=== PATIENT | female | born 1965 | race Hispanic/Latino ===

== ENCOUNTER 2016-07-17 18:04 | Emergency (ER) | payer OTHER ==
[~2016-07-17] VITALS: Ht 144.8 cm; Wt 91.8 kg
[~2016-07-17 18:04] MED LIST: ASPI-973 PO; ATOR20TA PO; HYDR-4003 PO; IBUP800T28 PO; METF500T4 PO; ROB500 PO
[2016-07-17 18:12] VITALS: BP 128/90; PULSE 81; RESP 16; O2SAT 98
[2016-07-17] MEDS ORDERED: OXYC1TAB24 PO (18:18)
[2016-07-17] MEDS ORDERED: OMEP20CA11 PO (18:18)
[2016-07-17] MEDS ORDERED: FLUO20CA25 PO (18:18)
[2016-07-17] MEDS ORDERED: CYCL5TAB PO (18:18)
[2016-07-17 18:41] LABS: BASOPHILS % (AUTO) 0 % (0-3); EOSINOPHILS % (AUTO) 0.3 % (0-5); MONOCYTES % (AUTO) 9.9 % (4-12); Mean Corpuscular Hemoglobin 29.2 pg (27.0-35.0); Mean Corpuscular Volume 87.5 fL (81-100); NEUTROPHILS % (AUTO) 54.7 % (40-74); Platelet Count 194 bil/L (150-400)
--- NOTE | 2016-07-17 18:57 | DRSVH ---
PROCEDURE: X-RAY CHEST, TWO VIEWS ([id number]) INDICATIONS: chest pain , shortness of breath TECHNIQUE: 2 views of the chest were acquired. COMPARISON: None. FINDINGS: Surgical changes and devices: Multiple surgical clips are projected over the epigastrium. Lungs and pleura: No pleural effusions or pneumothorax. Lungs are clear. Mediastinum: Mediastinal contours are normal. Heart size is normal. Bones and chest wall: No suspicious bony abnormalities. Soft tissues appear unremarkable. IMPRESSION: No acute cardiopulmonary findings. Dictated by: Virgen Rome M.D. on 07/17/2016 at 18:54 Approved by: Virgen Rome M.D. on 07/17/2016 at 18:55
--- NOTE | 2016-07-17 20:50 | ED.REPORT ---
HPI-Dyspnea / Wheezing Date of Service Jul 17, 2016 ED Provider: Uriel Andujar MD Pt is a 51 y/o female w/ a hx of NIDDM presenting to the ED c/o cough onset 2 days ago. She c/o associated chest tightness, back pain, rib pain, which are all exacerbated by coughing and deep breaths. Pt c/o associated rhinorrhea, sore throat. She denies phlegm, fever, nausea, vomiting. Nursing Notes Stated Complaint: COUGH,FEVER,CHEST AND BACK PAIN Chief Complaint: FLU/Cold Symptoms Nursing Notes Reviewed: Yes Allergies: Coded Allergies: TAPE (Verified Allergy, Unknown, SKIN PEELS, 07/17/16) hydromorphone (Verified Adverse Reaction, Severe, Nausea,Vomiting, 07/17/16 ) severe nausea and vomiting. Scheduled Aspirin (Aspirin) 81 Mg Tablet.dr 81 MG PO DAILY Atorvastatin (Lipitor) 20 Mg Tablet 20 MG PO HS Fluoxetine (Fluoxetine) 20 Mg Capsule 20 MG PO DAILY Metformin (Metformin) 500 Mg Tablet 500 MG PO BIDWM Omeprazole (Omeprazole) 20 Mg Capsule.dr 20 MG PO DAILY Promethazine DM Syrup (Promethazine DM Syrup) 118 Ml Syrup 5 ML PO HS oxyCODONE-Acetaminophen 5-325 mg (oxyCODONE-Acetaminophen 5-325 mg) 1 Each Tablet 1 TAB PO BID Scheduled PRN Cyclobenzaprine (Cyclobenzaprine) 5 Mg Tablet 5 MG PO BID PRN PRN For Spasm Fluticasone Propionate (Flonase Allergy Relief) 50 Mcg/Actuation [place].susp 9.9 ML NS BID PRN PRN For Congestion Ibuprofen (Ibuprofen) 800 Mg Tablet 800 MG PO DAILY PRN PRN For Pain General Time Seen by MD: 20:50 Chief Complaint Cough Hx Obtained From: Patient Arrived By: Walk-in Sudden in Onset?: No Onset Occurred: 2 days ago Symptom Duration: Since onset Location: : Back: Chest left: Chest right Quality: Pleuritic Severity: Current: Mild Severity: Maximum: Mild Risk Factors PERC Rule PERC rule satisfied Past Medical History Past Medical History PCP: Dr. Uriel Mathis NIDDM Osteoarthritis in lumbar Diverticilosis Diverticulitis Born with only right kidney Past Surgical History Colectomy Hiatal hernia repair Reports: Appendectomy, , Cholecystectomy, Hysterectomy Family History Reviewed, not relevant Smoking History Never Smoker Social History Other Social History: Good social support, Local resident Ambulatory Status Independent Review of Systems Constitutional: Denies: Chills, Fever Ears / Nose / Throat: Reports: Nasal congestion, Sore throat, Denies: Throat swelling Respiratory: Reports: Non-productive cough, Pleuritic pain, Denies: Prod cough, bloody, Prod cough, brown, Prod cough, clear, Prod cough , green, Prod cough, white, Prod cough, yellow, Shortness of breath Cardiovascular: Reports: Chest pain (noncard), Denies: Edema Musculoskeletal: Reports: Back pain, Neck pain, Thoracic pain Allergy / Immune: Reports: Rhinorrhea, Denies: Itching Complete sys rev & neg: except as marked. GI: Denies: Abdominal pain, Nausea, Vomiting Physical Exam Initial Vital Signs Vital Signs (First) Date Time Temp Pulse Resp B/P Pulse Ox O2 Delivery O2 Flow Rate FiO2 07/17/16 18:12 36.2 81 16 128/90 98 Room Air Initial VS: Reviewed, Vital signs normal Head / Eyes: Atraumatic, Normocephalic, PERRL ENT: Mucous membranes moist, Conjunctiva normal, No scleral icterus Abdomen / GI: Soft, Non-tender, No guarding, No rebound, No distention Extremities: Vascular intact, Neuro intact, No swelling, No tenderness Skin: Warm, Dry, No cyanosis Neurologic: Alert, Oriented, Nonfocal Psychiatric: Mood/affect normal, Behavior normal, Normal thought content General/Constitutional: Awake, Alert, No acute distress, Well appearing, Cooperative, Not toxic appearing Neck: Atraumatic, Supple, No meningismus, Full range of motion Respiratory / Chest: Atraumatic, Breath sounds NL, Breath sounds = bilat, No respiratory distress, No rales, No rhonchi, No wheezing, No retractions, No stridor, No chest tenderness, No chest wall deformity, No crepitus Cardiovascular: Heart rate NL, Regular rhythm, Heart sounds NL, No gallop, No murmurs, No rubs, Cap refill not delayed, Peripheral circulation NL Interpretation & Diagnostics Lab Results Interpretation Result Diagram: 07/17/16182407/17/161824 Test 07/17/16 18:25 White Blood Count 6.4th/mm3 (3.8-10.1) Red Blood Count 5.10mil/mm3 (3.90-5.20) Hemoglobin 14.9g/dL (12.0-15.6) Hematocrit 44.6% (35.0-46.0) Mean Corpuscular Volume 87.5fL (81-100) Mean Corpuscular Hemoglobin 29.2pg (27.0-35.0) Mean Corpuscular Hemoglobin Concent 33.4% (32.0-37.0) Red Cell Distribution Width 14.2% (12.3-15.4) Platelet Count 194bil/L (150-400) Neutrophils (%) (Auto) 54.7% (40-74) Lymphocytes (%) (Auto) 34.9% (14-46) Monocytes (%) (Auto) 9.9% (4-12) Eosinophils (%) (Auto) 0.3% (0-5) Basophils (%) (Auto) 0% (0-3) Sodium Level 136mEq/L (134-144) Potassium Level 4.7mEq/L (3.5-5.2) Chloride Level 98mEq/L (97-108) Carbon Dioxide Level 24mmol/L (18-29) Blood Urea Nitrogen 14mg/dL (6-24) Creatinine 0.94mg/dL (0.57-1.00) Estimat Glomerular Filtration Rate 90mL/min (>59) Glucose Level 142mg/dL (60-99) Calcium Level 9.5mg/dL (8.5-10.1) Total Bilirubin 0.3mg/dL (0.0-1.2) Aspartate Amino Transf (AST/SGOT) 24U/L (0-50) Alanine Aminotransferase (ALT/SGPT) 31U/L (0-32) Alkaline Phosphatase 121U/L (25-150) Total Protein 7.6g/dL (6.4-8.4) Albumin 4.4g/dL (3.4-5.0) Hold Estrada Top Tube Received (Received) Lab Results Interpretation: Flu neg X-Ray Chest Interpretation Chest Xray Interpretation: IMPRESSION: No acute cardiopulmonary findings. Dictated by: Virgen Rome M.D. on 07/17/2016 at 18:54 Approved by: Virgen Rome M.D. on 07/17/2016 at 18:55 View: Portable, 1 view Interpretation / Wet Read by: Interpret - Radiologist Re-Eval/Medical Decision Med Decision/Clinical Course 31-year-old female presenting with 2 days cough and congestion. Chest x-ray is clear. Vital signs stable. Likely viral URI. Supportive care. Return precautions. Re-Evaluation/Progress : Time of Eval: 21:24 Re-Evaluation/Progress Note: Pt rechecked. Informed pt of plan for treatment. Pt understands and agrees with plan for treatment. F/U instructions and RTER warnings given. All questions addressed. Counseled Regarding: Diagnosis, Lab results, Need for follow-up, When/why to return to ED Discharge & Departure Impression: Primary Impression: Viral URI Disposition: Home Discharge Condition All VS Reviewed: Yes Condition: Stable Patient Instructions: Upper Respiratory Infection (ED) Additional Instructions: Your symptoms today are consistent with a viral upper respiratory infection. This should improve within the next few days. Your labs and chest x-ray were normal. The flu was negative. Take the prescribed cough syrup as directed. Return to the emergency department if you experience severe shortness of breath , high fever, profound weakness, persistent vomiting, severe pain, or other concerning symptoms. Follow-up with your doctor next week. Referrals: Uriel Mathis MD (PCP) Scribe Attestation Portions of this note were transcribed by Kvng Carter. I, Dr. Andujar personally performed the history, physical exam and medical decision-making; I reviewed and confirmed the accuracy of the information in the transcribed note. Signed by Gary Wagner, 07/17/16 - 0 copies to: Uriel Mathis MD, Ben M MD Jul 17, 2016 20:50 KVNG CARTER Jul 17, 2016 20:51
[2016-07-17] MEDS ORDERED: FLUT9.9S NS (21:26)
[2016-07-17] MEDS ORDERED: D-ME118S8 PO (21:26)
[2016-07-17 21:39] VITALS: BP 131/80; PULSE 89; RESP 16; O2SAT 96
[2016-10-20] MEDS ORDERED: CYCL15CA18 PO (13:42)
== END 2016-07-17 21:44 | disposition home or self-care (01) ==
LOC: SED 18:04
DX: J06.9 Acute upper respiratory infection, unspecified (principal); E11.9 Type 2 diabetes mellitus without complications; Z79.82 Long term (current) use of aspirin; Z79.84 Long term (current) use of oral hypoglycemic drugs; Z88.5 Allergy status to narcotic agent

== ENCOUNTER 2016-10-22 11:04 | Day surgery (SDC) | payer OTHER ==
[~2016-10-22] VITALS: Ht 147.3 cm; Wt 94.3 kg
[~2016-10-22 11:04] MED LIST changes: +CYCL15CA18 PO; +FLUO20CA25 PO; -HYDR-4003 PO; -IBUP800T28 PO; +Lactated Ringer's 1,000 ML IV ONE; +OMEP20CA11 PO; -ROB500 PO
[2016-10-22] MEDS ORDERED: Propofol 10,000 mCg/mL 20 mL Inj ONE (11:05)
[2016-10-22 11:49] VITALS: BP 153/62; PULSE 89; RESP 17; O2SAT 63
[2016-10-22] MEDS ORDERED: Lactated Ringer's 1,000 ML IV SCH (12:15)
[2016-10-22] MEDS ORDERED: MetoCLOpramide 5 mg/mL 2 mL Inj IVPUSH PRN (12:15)
[2016-10-22] MEDS ORDERED: Ondansetron 2 mg/mL 2 mL Inj IVPUSH PRN (12:15)
--- NOTE | 2016-10-22 12:15 | PCM.HPANE ---
Patient Data Date of Service: Oct 22, 2016 Surgeon Admitting Provider: Attending Provider:Tony Ramesh MD Primary Care Physician:Uriel Mathis MD Other Provider:Shelby Phan Anesthesia Reason for Visit Colon Ca Screen Ht/WT & BMI Height (Feet): 4 Height (Inches): 10 Weight (Kilograms): 94.35 Body Mass Index 43.00 Allergies Coded Allergies: TAPE (Verified Allergy, Unknown, SKIN PEELS, 07/17/16) hydromorphone (Verified Adverse Reaction, Severe, Nausea,Vomiting, palpations, 10/22/16) severe nausea and vomiting. Past Anesthesia History Anesthesia History: Positive for:: Anesthesia Reactions (nausea), Denies:: Fam Malignant Hypertherm, Malignant Hyperthermia Diabetes History Hx Diabetes?: Yes (on metformin) Current Bedside Blood Glucose: 112 MRSA MRSA: No Medications Hypertension Medication: No Home Meds Incl Beta Ryan: No Active Scripts Atorvastatin (Lipitor)20 Mg [id number] Mg PO HS #30 TABLET Ref 3 Prov:Jose Tomlinson MD 02/10/14 Aspirin 81 Mg Tablet.dr81 Mg PO DAILY #1 BOTTLE Ref 3 Prov:Jose Tomlinson MD 02/10/14 Metformin 500 Mg [id number] Mg PO BIDWM #30 TABLET Ref 3 Prov:Jose Tomlinson MD 02/10/14 Reported Medications Cyclobenzaprine ER (Amrix)15 Mg Capsule1 Capsule PO DAILY PRN unknown 10/20/16 Fluoxetine 20 Mg [id number] Mg PO DAILY 07/17/16 Omeprazole 20 Mg Capsule.dr20 Mg PO DAILY 07/17/16 Discontinued Reported Medications Cyclobenzaprine 5 Mg Tablet5 Mg PO BID PRN For Spasm #30 07/17/16 oxyCODONE-Acetaminophen 5-325 mg 1 Each Tablet1 Tab PO BID #56 07/17/16 Ibuprofen 800 Mg Acndev152 Mg PO DAILY PRN For Pain #90 08/31/15 Discontinued Scripts Promethazine DM Syrup 118 Ml Syrup5 Ml PO HS #10 ML Prov:Uriel Andujar MD 07/17/16 Fluticasone Propionate (Flonase Allergy Relief)50 Mcg/Actuation [place].susp9.9 Ml NS BID PRN For Congestion #1 BOTTLE Prov:Uriel Andujar MD 07/17/16 History History of ENT Problems?: No HEENT History: Denies:: Hearing Problem Denture Type: None Teeth Condition: Within Normal Limits Hx of Heart Problems?: Yes Cardiovascular History: Denies:: Cardiac Surgery Congestive Heart Failure Edema Heart Murmur Hypertension Irregular Heartbeat (Palpitations sometimes. ) Pacemaker Thrombophlebitis Hx of Respiratory Problem?: No Respiratory History: Positive for:: Dyspnea (when I have pain. ) Denies:: Asthma COPD Chest Surgery Hemoptysis Pneumonia Tuberculosis Hx Neurologic Problems?: No Neurological History: Denies:: Alzheimer's Disease CVA Dementia Dizziness Headaches Parkinson's Disease Seizures Hx of GI Problems?: Yes Hx of Problems?: No Genitourinary History: Denies:: HX of Hemodialysis Kidney Stones Urinary Tract Infection ("I was born with one kidney.") HX of Peritoneal Dialysis: No Female Hx: Denies:: Currently Endometriosis Pelvic Inflammatory Problems with Breasts? Hx Musculoskeletal Problems?: Yes Musculoskeletal History: Denies:: Back Injury Joint Replacement Musculoskeletal Trauma Hx of Psycho/Social Problems?: No Psycho Social History: Positive for:: Anxiety Hx Depression Denies:: Bipolar Disorder Suicide Attempt Hx Surgeries?: Yes (c section, partial colectomy, esophageal/stomach valve surgery) Hx Any Other Health Problems?: Yes Other History: Denies:: Cancer Endocrine Disease Thyroid Disease History Blood Transfusions: Denies:: Blood Transfusions Hx Diabetes: Yes (on metformin)Bedside Blood Glucose: 112 Hx Alcohol Use: NoHx Substance Use: No Smoking Status: Never Smoker Have You Smoked inLast 12 mo: No Stop/Bang Treated for Sleep Apnea?: No Do You Have a CPAP Machine?: No S-Snoring: Do You Snore Loudly: No T-Tired: feel tired, fatigued: Yes O-Obsered: Observed not breath: No P-Blood Pressure: treated: No B- Body Mass Index > 35 kg/m2: Yes A- Age over 50: Yes N- Neck Large Circumference: Yes G- Gender Male: No NATASHA Total Score: 4 NATASHA Risk Assessment: High Risk, =/>3 Yes NATASHA Category 4 OutPt Procedure: Yes Risk Assessment Category Category 1A: Patient has history of documented sleep apnea, and HAS NOT received any narcotic, sedative or anesthesia administration during this stay. Category 1B: Patient has history of documented sleep apnea, and HAS received any narcotic , sedative or anesthesia administration during this stay Category 2: Patient has SUSPECTED Obstructive Sleep Apnea, and HAS received any narcotic , sedative or anesthesia administration during this stay. Category 3: Patient has SUSPECTED Obstructive Sleep Apnea and HAS NOT received narcotic, sedative or anesthesia administration during this stay. Category 4: Outpatient in Procedural Areas with known sleep apnea or who screen positive for High Risk via the STOP/BANG questionnaire. Exam Exam Vital Signs Vital Signs Date Time Temp Pulse Resp B/P Pulse Ox O2 Delivery O2 Flow Rate FiO2 10/22/16 11:49 89 17 153/62 63 Room Air General Appearance: Alert, Oriented X3, Cooperative HEENT/AIRWAY: MP 2, Neck Movement (Full), Mouth Opening (Wide) Lungs: Clear to Auscultation, Normal Air Movement Heart: Regular Rate/Rhythm, Normal S1, Normal S2 Meds/Labs/Diagnostics Bedside Blood Glucose: 112 Plan Impression Patient chart reviewed, patient interviewed and anesthestic plan with risks, benefits, and alternatives discussed, and informed consent obtained. NPO per Anesth. Guidelines: Yes ASA Physical Status: ASA3 Severe Disease Anesthetic Plan: MAC Bene/Risks/Altern/Consents: Yes HP Complete Prior to Induction: Yes Other ASA III - Morbid Obesity Jonatan Russo MD Oct 22, 2016 12:10
[2016-10-22 12:48] VITALS: BP 116/69; PULSE 75; RESP 16; O2SAT 99
--- NOTE | 2016-10-22 12:49 | PCM.ENDCOL ---
Colonoscopy Date of Service: Oct 22, 2016 Physician Tony Ramesh MD Pre Procedure Diagnosis: Screening and change in bowel patterns Post Procedure Dx & Findings: Polyp hemorrhoids diverticuli normal anastomosis site Procedure Colonoscopy PROCEDURE IN DETAIL: Prep adequate Withdrawal time 9 minutes After unremarkable rectal examination the Olympus video colonoscope was inserted patient's anal canal and was advanced to cecum. Landmarks were identified including the ileocecal valve and appendiceal orifice. Scope was withdrawn systematically. Visualized colonic mucosa showed healthy shiny mucosa with normal healthy-appearing vasculature. Normal anastomosis site. 4 mm rectal polyp which was removed completely using cold snare. Patient also had a few remaining diverticula in the colon. In the rectum retroflexion was done which showed hemorrhoids. Anal canal was inspected carefully on the way out and hemorrhoids noted. Impression Polyp 1 status post complete removal diverticuli normal anastomosis site Hemorrhoids Recommendation Repeat colonoscopy in 5 years Diverticular diet Presedation Assessment Risks and Benefits Informed consent was obtained from the patient after all risks and benefits including but not limited to drug reaction, infection, pain, bleeding, perforation, as well as alternatives were discussed. Patient monitoring Continuous pulse oximetry, cardiac monitoring, blood pressure monitoring, IV access, and oxygen at 2L per nasal cannula. Complications There were no periprocedural complications identified. Post Procedure Plan Post Procedure Recommendations 1. Restrict activities today. 2. Resume normal activities in the morning. 3. Resume medications. 4. Patient informed of normal post procedure side effects as bloating, drowsiness, blood streaking in the stool. 5. average risk CRCS. If colon polyps come back as: -Hyperplastic- can repeat colonoscopy in 10 years -Tubular adenoma- repeat colonoscopy in 5 years -Tubulovillous/villous adenoma- repeat colonoscopy in 3 years -If any dysplasia- return to clinic as soon as possible 6. Please don't hesitate to call me with any questions. Tony Ramesh MD Oct 22, 2016 12:49
[2016-10-22 12:58] VITALS: BP 130/80; PULSE 71; RESP 16; O2SAT 98
[2016-10-22 13:13] VITALS: BP 134/84; PULSE 71; RESP 16; O2SAT 98
[2016-10-22 13:18] VITALS: BP 142/77; PULSE 73; RESP 16; O2SAT 98
--- NOTE | 2016-10-22 13:20 | PCM.ANEP1 ---
Post Anesthesia PACU Phase 1 Assessment Date of Service: Oct 22, 2016 Vital Signs Vital Signs Date Time Temp Pulse Resp B/P Pulse Ox O2 Delivery O2 Flow Rate FiO2 10/22/16 13:13 71 16 134/84 98 Room Air 10/22/16 12:58 71 16 130/80 98 Room Air 10/22/16 12:48 36.2 75 16 116/69 99 Room Air 10/22/16 11:49 89 17 153/62 63 Room Air Anesthetic Administered: MAC Level of Alertness: Awake, talking CRYSTAL's with Equal Strength: Yes Pain: No Nausea or Vomiting: No CV Function & Hydration Stable: Yes Airway Device: Oxygen Delivery: Room Air Lungs: Normal Air Movement PACU Phase 2 Assessment Complications: No Follow up Care: No Patient Instructions Provided: N/A Jonatan Russo MD Oct 22, 2016 13:20
[2016-10-22 13:46] VITALS: BP 109/75; PULSE 72; RESP 16; O2SAT 96
--- NOTE | 2016-10-26 10:54 | PATH ---
SURGICAL PATHOLOGY Attending Physician:Tony Ramesh M.D. CASE STATUS: Signed Out PATIENT NAME: SAMARA DUBOSE PID: [id number] : 1965 DATE COLLECTED:10/22/2016 21:54 SPECIMEN: Rectum, Biopsy CLINICAL HISTORY: 1). RECTAL POLYP X1 FINAL DIAGNOSIS: 1.RECTAL POLYP: TUBULAR ADENOMA. ICD10 D12.8 GROSS DESCRIPTION: Received in formalin, labeled with the patient's name and "rectal polyp" is one fragment of carmen soft tissue measuring 0.4 x 0.3 x 0.3 cm. The fragment is bisected and totally submitted in one cassette. ([id number]) MICRO DESCRIPTION: See diagnosis. ICD-9 CODES: CPT CODES: 1: 83493 Electronically Signed Out Ruslan Stovall MD [facility] Pathology [facility] [address], [place] [address] Technical component performed at [facility], [address] [place] [address] Ave[address], [place], [address]
== END 2016-10-22 23:59 | disposition home or self-care (01) ==
LOC: END 11:04
PROVIDERS: ATTEND Internal Medicine
DX: Z12.11 Encounter for screening for malignant neoplasm of colon (principal); D12.8 Benign neoplasm of rectum; K57.30 Diverticulosis of large intestine without perforation or abscess without bleeding; K64.9 Unspecified hemorrhoids; R19.4 Change in bowel habit; E11.9 Type 2 diabetes mellitus without complications; M54.5 Low back pain; F41.8 Other specified anxiety disorders; E66.01 Morbid (severe) obesity due to excess calories; Z79.891 Long term (current) use of opiate analgesic; Z79.82 Long term (current) use of aspirin; Z79.84 Long term (current) use of oral hypoglycemic drugs; Z68.41 Body mass index [BMI] 40.0-44.9, adult; Z90.49 Acquired absence of other specified parts of digestive tract
CPT/HCPCS: 45385; 88305; J2405; J7120